=== PATIENT | female | born 1955 | race Hispanic/Latino ===

== ENCOUNTER → 2020-07-10 | Outpatient (CLI) | payer BC, OTHER | END | disposition home or self-care (01) | LOC: SLP 19:56 | PROVIDERS: ATTEND Family Medicine | DX: G47.33 Obstructive sleep apnea (adult) (pediatric) (principal) | CPT/HCPCS: 95810 ==

== ENCOUNTER → 2020-07-27 | Outpatient (CLI) | payer OTHER | END | disposition home or self-care (01) | LOC: SLP 20:30 | PROVIDERS: ATTEND Family Medicine | DX: G47.33 Obstructive sleep apnea (adult) (pediatric) (principal) | CPT/HCPCS: 95811 ==

== ENCOUNTER 2022-05-19 14:15 | Emergency (ER) | payer OTHER ==
[~2022-05-19] VITALS: Ht 152.4 cm; Wt 67.6 kg
[2022-05-19] MEDS ORDERED: ACETAMINOPHEN 500 MG TABLET PO ONE (15:30)
[2022-05-19 17:00] VITALS: BP 124/68
== END 2022-05-19 17:04 | disposition home or self-care (01) ==
LOC: EDH 14:15
DX: S40.211A Abrasion of right shoulder, initial encounter (principal); E78.00 Pure hypercholesterolemia, unspecified; V49.59XA Passenger injured in collision with other motor vehicles in traffic accident, initial encounter; Y93.89 Activity, other specified; Y92.413 State road as the place of occurrence of the external cause; Y99.8 Other external cause status
CPT/HCPCS: 73030